=== PATIENT | male | born 1975 | race Two or more races ===

== ENCOUNTER 2023-07-11 08:17 | Emergency (ER) | payer OTHER ==
[~2023-07-11] VITALS: Ht 177.8 cm; Wt 86.2 kg
[2023-07-11 09:23] LABS: PH,URINE 6.5 (5.0-8.0); URINE APPEARANCE Clear; URINE BILIRRUBIN Negative (NEGATIVE); URINE BLOOD Negative; URINE COLOR Yellow; URINE GLUCOSE Negative (NEGATIVE); URINE LEUKOCYTE Negative; URINE NITRATE Negative; URINE PROTEIN Negative (NEGATIVE); URINE UROBILINOGEN 0.2 E.U./dl
[2023-07-11 09:24] LABS: HEMOGLOBIN 14.9 g/dL (13-16.00); MEAN CELL VOLUME 88.6 fL (80.0-100.00); MEAN CORPUSCULAR HEMOGLOBIN 29.3 pg (27.00-32.0); MEAN CORPUSCULAR HGB CONC 33.1 g/dl (32.0-36.0); PLATELET COUNT 296 K/uL (150-450); RED BLOOD COUNT 5.08 M/uL (4.00-6.00); RED CELL DISTRIBUTION WIDTH 14.6 % (11.5-14.5); URINE BACTERIA 6.2 uL (0.0-1933); URINE EPITHELIAL CELLS 5.2 uL (0.0-38.8); URINE RBC 4.7 uL (0.0-20.8); URINE WBC 4.1 uL (0.0-23.2)
[2023-07-11 09:56] LABS: CREATININE SERUM 1.04 mg/dL (0.70-1.30); GFR 75.59; POTASSIUM 4.46 mEq/L (3.5-5.1)
== END 2023-07-11 12:18 | disposition home or self-care (01) ==
LOC: ER 08:17
PROVIDERS: Emergency Medicine
DX: R10.84 Generalized abdominal pain (principal); N20.0 Calculus of kidney